=== PATIENT | male | born 1985 | race Caucasian/White ===

== ENCOUNTER 2019-10-28 20:50 | Emergency (ER) | payer OTHER, SELFPAY ==
[~2019-10-28] VITALS: Ht 165.1 cm; Wt 99.8 kg
[2019-10-28 21:15] VITALS: BP 144/89
--- NOTE | 2019-10-28 21:20 | NUR ---
PT SEEN AND TRIAGE FROM [facility]. PT TO A/W MED EVALUATION IN [facility]
[2019-10-28 21:30] VITALS: BP 144/89
--- NOTE | 2019-10-28 21:48 | NUR ---
PT EVALUATED BY TIM
--- NOTE | 2019-10-28 22:02 | NUR ---
PT TAKEN TO RAD VIA W/C
--- NOTE | 2019-10-28 22:42 | NUR ---
COVID SWAB COLLECTED AND TAKEN TO LAB.
--- NOTE | 2019-10-28 23:19 | NUR ---
Patient discharged with v/s stable. Written and verbal after care instructions given and explained. Patient alert, oriented and verbalized understanding of instructions. Ambulatory with steady gait. All questions addressed prior to discharge. ID band removed. Patient advised to follow up with PMD. Rx of PROMETHAZINE given. Patient educated on indication of medication including possible reaction and side effects. Opportunity to ask questions provided and answered.
== END 2019-10-28 21:20 | disposition home or self-care (01) ==
LOC: EEVIPCON 20:50 → MED 20:50
DX: R05 Cough (principal); Z20.828 Contact with and (suspected) exposure to other viral communicable diseases; R06.02 Shortness of breath; J02.9 Acute pharyngitis, unspecified
CPT/HCPCS: 71045; 99284; U0003

== ENCOUNTER 2023-09-25 17:58 | Emergency (ER) | payer BC, OTHER ==
[~2023-09-25] VITALS: Ht 165.1 cm; Wt 99.8 kg
[2023-09-25 18:13] VITALS: BP 159/100; PULSE 88; RESP 24; TEMP 98.2; O2SAT 98
[2023-09-25] MEDS ORDERED: IBUP-2213 PO (19:26)
[2023-09-25] MEDS: KETOROLAC 60 MG/2 ML VIAL IM ONE (19:31)
[2023-09-25] MEDS: BACITRACIN OINT 500 UNITS/GM PKT TP ONE (19:42)
[2023-09-25] MEDS: LIDOCAINE MPF 1% 10 MG/ML VIAL INJ ONE (19:43)
== END 2023-09-25 19:45 | disposition home or self-care (01) ==
LOC: MED 17:58
DX: S61.211A Laceration without foreign body of left index finger without damage to nail, initial encounter (principal); Z72.89 Other problems related to lifestyle; X58.XXXA Exposure to other specified factors, initial encounter; Y93.89 Activity, other specified; Y92.89 Other specified places as the place of occurrence of the external cause; Y99.8 Other external cause status
CPT/HCPCS: 12001; 90471; 90715; 96372; 99284; J1885; J2001